=== PATIENT | female | born 1995 | race Caucasian/White ===

== ENCOUNTER 2016-07-02 06:57 | Day surgery (SDC) | payer BC ==
[~2016-07-02] VITALS: Ht 162.6 cm; Wt 68.2 kg
[2016-07-02 07:15] VITALS: BP 135/87; PULSE 79; RESP 20; TEMP 98.7; O2SAT 98
[2016-07-02] MEDS ORDERED: SODIUM CHLOR 0.9% 1000 ML INJ 1,000 ML IV SCH (07:15)
[2016-07-02] MEDS ORDERED: ACYC800T PO (07:24)
[2016-07-02 08:18] LABS: APTT (PATIENT) 25.7 SEC (24.3-30.1); PROTHROMBIN TIME - PATIENT 11.2 SEC (9.8-11.6)
--- NOTE | 2016-07-02 09:55 | PD.RAD ---
Post Procedure Progress Note Pre Procedure Diagnosis: (1) Elevated ICP Post Procedure Diagnosis: (1) Elevated ICP Procedure Date: Jul 02, 2016 Supervising Radiologist: Oneil Calero Proceduralist/Assist: Carolyn Marie, RT(R)(), Ara Benitez RT(R)() Anesthesia: Local Plan of Activity Patient to Unit: ROPU Patient Condition: Good See PACS Report for procedural detail/treatment Spinal Procedure Lumbar Puncture L3-L4 Fluid Removal (CCs): 25 Fluid Description: Clear Puncture Time: 09:38 Findings: OP-36.5 cm/H2O CP-11 cm/H2O Oneil Calero MD Jul 02, 2016 09:55
[2016-07-02 09:58] VITALS: BP 117/72; PULSE 78; RESP 18; TEMP 98.3; O2SAT 98
[2016-07-02 11:12] LABS: GROSS BLOOD TUBE #1 O (0); GROSS BLOOD TUBE #2 0 (0); GROSS BLOOD TUBE #3 0 (0); SUPERNATE COLOR TUBE #1 CLEAR (CLEAR); SUPERNATE COLOR TUBE #2 CLEAR (CLEAR); SUPERNATE COLOR TUBE #3 CLEAR (CLEAR); WBC TUBE #3 0 /MM3 (0-10)
[2016-07-02 11:13] LABS: CSF LYMPHOCYTES 0 %; CSF NEUTROPHILS 0 %; GROSS BLOOD TUBE #4 0 (0); SUPERNATE COLOR TUBE #4 CLEAR (CLEAR)
--- NOTE | 2016-07-02 11:32 | RADRPT ---
EXAM DATE/TIME: 07/02/2016 09:07 [place] COMPARISON: No previous studies available for comparison. INDICATIONS : Patient is in need of a lumbar puncture for evaluation of CSF due to frequent headaches. 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 SURGICAL HISTORY : N/A ENCOUNTER: Initial ACUITY: 1 month PAIN SCORE: 0/10 LUMBAR PUNCTURE TIME: 0938 hours FLUORO TIME: 1.3 minutes ACCESS LEVEL: L3-4 OPENING PRESSURE: 36.5 cm of water CLOSING PRESSURE: 11 cm of water FLUID: 25 cc of clear CSF was collected and sent to the laboratory for analysis. PROCEDURE : 1. Fluoroscopic guided lumbar puncture. 2. Recording of opening pressure. The risks, benefits and alternatives to the procedure were explained and verbal and written consent w as obtained. The site was prepped in sterile fashion. Full sterile technique was used, including ca p, mask, sterile gloves and gown and a large sterile sheet. Hand hygiene and 2% chlorhexidine and/or betadine/alcohol prep was utilized per protocol for cutaneous antisepsis. The skin and subcutaneous tissues were infiltrated with local anesthetic solution. With fluoroscopic guidance the lumbar thecal sac was punctured at the above level described above and the opening pressure was recorded. The above described fluid was removed without difficulty. The patient tolerated the procedure well and there were no complications. One hour post procedure patient described decrease in severity of headache and slightly less blurred vision. CONCLUSION: Uncomplicated fluoroscopically guided lumbar puncture with pressures as above. Oneil Calero MD on July 02, 2016 at 11:29 Board Certified Radiologist. This report was verified electronically.
[2016-07-02 11:39] VITALS: BP 123/75; PULSE 83; RESP 20; O2SAT 98
[2016-07-03 15:30] LABS: OLIGOCLONAL BANDING CSF 2 bands (()); OLIGOCLONAL BANDING INTERPRET 0 bands (<4); OLIGOCLONAL BANDING SERUM 2 bands (())
[2016-07-06 23:53] LABS: VDRL CSF NON-REACTIVE (())
[2016-07-07 07:56] LABS: B. BURGDORFERI DNA PCR CSF NOT DETECTED (())
== END 2016-07-02 12:15 | disposition home or self-care (01) ==
LOC: HROP 06:57 → HRIP 06:58 → HROP 12:15
PROVIDERS: ATTEND Specialist
DX: G93.2 Benign intracranial hypertension (principal); R51 Headache; R42 Dizziness and giddiness; H53.8 Other visual disturbances
CPT/HCPCS: 62270; 77003; 82945; 83873; 83916; 84157; 85610; 85730; 86592; 87015; 87070; 87116; 87205; 87206; 87801; 89051; J7030